=== PATIENT | female | born 1990 | race Caucasian/White ===

== ENCOUNTER → 2019-03-04 | Outpatient (CLI) | payer MEDICAID ==
--- NOTE | 2019-03-04 13:43 | MY ---
Diagnostic Tomosynthesis Bi CLINICAL HISTORY: Left breast lump COMPARISON: None, baseline TECHNIQUE: Craniocaudal and mediolateral oblique views of both breasts were obtained using low dose, digital soft tissue technique.Images were reviewed with a radiologist prior to completion. Computer-Aided Detection System was utilized . BREAST DENSITY: There are scattered areas of fibroglandular density. FINDINGS: There are there are 4 contiguous small well demarcated nodular densities in the right outer breast. There is a marker in the upper outer left breast. The this is were patient palpates a lump. There is no underlying mass or architectural distortion. No suspicious calcifications are seen. Impression: Small nodular densities in the lateral aspect of the posterior right breast the No mammographic abnormality in the region of patient's palpable lump Recommendation: Bilateral Limited breast ultrasound BI-RADS 0: Incomplete. Needs additional imaging evaluation needed. .
--- NOTE | 2019-03-04 13:45 | US ---
Breast Limited Lt CLINICAL HISTORY: Left upper outer breast lump FINDINGS: Right breast: At 9:30 there is a cluster of small cysts. There is also 1 small mildly prominent duct. No solid lesion seen Left breast: No mass or architectural distortion IMPRESSION: Small nodular density seen in the lateral right breast correlate to cysts No abnormality seen in the left breast Recommendation: Routine mammographic follow-up as per ACR guidelines BI-RADS 2: Benign finding.
== END ==
LOC: JP.MAM 08:30
PROVIDERS: ATTEND Family Medicine
DX: N64.4 Mastodynia (principal); N63.20 Unspecified lump in the left breast, unspecified quadrant; N63.10 Unspecified lump in the right breast, unspecified quadrant
CPT/HCPCS: 76642; 77066; G0279

== ENCOUNTER 2020-01-26 12:31 | Day surgery (SDC) | payer MEDICAID ==
--- NOTE | 2020-01-26 13:12 | EDM.PDOC ---
ED HPI GENERAL MEDICAL PROBLEM - General Chief Complaint: Abdominal Pain Stated Complaint: PAIN SIDE AND IN BACK FROM [facility] Time Seen by Provider: 01/26/20 13:10 Source of Information: Reports: Patient, Other (Dr. Hendricks called ahead from [facility] to discuss pt. with me) History Limitations: Reports: No Limitations - History of Present Illness INITIAL COMMENTS - FREE TEXT/NARRATIVE: Abrupt onset RLQ pain as of yesterday PM.Able to drink water. Constant cramping w/flares of pain to 07/04. partial reief of pain w/leaning to L. Lab studies done in [place]: WBC12,700. Hgb 14.3.. U/A unremarkable. Onset: Today, Sudden Location: Reports: Abdomen (RLQ), Radiates to (back) Quality: Reports: Stabbing Severity: Severe Improves with: Reports: Other (leaning to left) Right Lower Abdomen Pain Score (Numeric/FACES): 7 - Related Data Allergies Allergy/AdvReac Type Severity Reaction Status Date / Time Penicillins Allergy Hives Verified 01/26/20 13:03 Home Meds: Home Meds Gabapentin [Neurontin] 900 mg PO ASDIRECTED 11/06/14 [History] Phentermine HCl 37.5 mg PO DAILY 10/19/19 [History] Social & Family History - Tobacco Use Smoking Status *Q: Light Tobacco Smoker Years of Tobacco use: 11 Packs/Tins Daily: 0.3 - Caffeine Use Caffeine Use: Reports: Energy Drinks Other Caffeine Use: 2-3 per week - Recreational Drug Use Recreational Drug Use: No ED ROS GENERAL - Review of Systems Review Of Systems: See Below Constitutional: Reports: Fever, Chills, Malaise HEENT: Reports: No Symptoms Respiratory: Reports: No Symptoms Cardiovascular: Denies: Chest Pain Endocrine: Reports: Fatigue GI/Abdominal: Reports: Abdominal Pain, Anorexia, Nausea, Vomiting : Reports: No Symptoms Skin: Denies: Pallor, Rash Neurological: Reports: No Symptoms Psychiatric: Reports: Depression ED EXAM, GI/ABD - Physical Exam Exam: See Below Exam Limited By: No Limitations General Appearance: Alert, Moderate Distress, Obese, Other (Leans constantly to L) Eyes: Bilateral: Normal Appearance Ears: Normal External Exam Nose: Normal Inspection Throat/Mouth: Normal Inspection Head: Normocephalic Neck: Supple, Non-Tender, Full Range of Motion Respiratory/Chest: Lungs Clear, Normal Breath Sounds Cardiovascular: Regular Rate, Rhythm, No Murmur GI/Abdominal Exam: Guarding (RLQ), Tender, Abnormal Bowel Sounds (infrequent) Back Exam: Full Range of Motion Extremities: Normal Range of Motion Neurological: Alert, Oriented Psychiatric: Depressed Mood Skin Exam: Warm, Dry, No Rash. No: Jaundice, Pallor Course - Vital Signs Last Recorded V/S: Last Vital Signs Temp 36.5 C 01/26/20 13:03 Pulse 92 01/26/20 14:35 Resp 18 01/26/20 13:53 BP 123/72 01/26/20 14:35 Pulse Ox 92 L 01/26/20 14:35 - Orders/Labs/Meds Orders: Active Orders 24 hr Category Date Time Status Iopamidol [Isovue-300 (61%)] Med 01/26/20 14:00 Active 141 ml IV . DIRECTED Meropenem [Merrem] 500 mg Med 01/26/20 15:10 Active Sodium Chloride 0.9% [Normal Saline] 50 ml IV ONETIME Sodium Chloride 0.9% [Normal Saline] 1,000 ml Med 01/26/20 15:00 Active IV ASDIRECTED Sodium Chloride 0.9% [Saline Flush] Med 01/26/20 13:49 Active 10 ml FLUSH ONETIME PRN Medication Orders Sodium Chloride (Normal Saline) 1,000 mls @ 125 mls/hr IV ASDIRECTED [facility] Last Admin: 01/26/20 14:52 Dose: 125 mls/hr Meropenem 500 mg/ Sodium (Chloride) 50 mls @ 100 mls/hr IV ONETIME ONE Stop: 01/26/20 15:39 Iopamidol (Isovue-300 (61%)) 141 ml IV . DIRECTED [facility] Last Admin: 01/26/20 14:03 Dose: 141 ml Sodium Chloride (Saline Flush) 10 ml FLUSH ONETIME PRN PRN Reason: PER RADIOLOGY PROTOCOL Last Admin: 01/26/20 14:06 Dose: 10 ml Labs: Laboratory Tests 01/26/20 01/26/20 01/26/20 Range/Units 13:30 13:30 13:44 Sodium 139 L (140-148) mmol/L Potassium 3.9 (3.6-5.2) mmol/L Chloride 104 (100-108) mmol/L Carbon Dioxide 22 (21-32) mmol/L Anion Gap 16.9 H (5.0-14.0) mmol/L BUN 15 (7-18) mg/dL Creatinine 0.9 (0.6-1.0) mg/dL Est Cr Clr Drug Dosing 72.95 mL/min Estimated GFR (MDRD) > 60 (>60) Glucose 84 (74-106) mg/dL Lactic Acid 1.2 (0.4-2.0) mmol/L Calcium 8.6 (8.5-10.1) mg/dL Total Bilirubin 0.5 (0.2-1.0) mg/dL AST 12 L (15-37) U/L ALT 28 (12-78) U/L Alkaline Phosphatase 136 H (46-116) U/L Total Protein 7.9 (6.4-8.2) g/dL Albumin 3.9 (3.4-5.0) g/dL Globulin 4.0 H (2.3-3.5) g/dL Albumin/Globulin Ratio 1.0 L (1.2-2.2) HCG, Quant 2 (0-6) mIU/mL Meds: Medications Generic Name Dose Route Start Last Admin Trade Name Freq PRN Reason Stop Dose Admin Sodium Chloride 1,000 mls @ 125 mls/hr 01/26/20 15:00 01/26/20 14:52 Normal Saline IV 125 mls/hr ASDIRECTED RICHARD Administration Meropenem 500 mg/ Sodium 50 mls @ 100 mls/hr 01/26/20 15:10 Chloride IV 01/26/20 15:39 ONETIME ONE Iopamidol 141 ml 01/26/20 14:00 01/26/20 14:03 Isovue-300 (61%) IV 141 ml . DIRECTED RICHARD Administration Sodium Chloride 10 ml 01/26/20 13:49 01/26/20 14:06 Saline Flush FLUSH 10 ml ONETIME PRN Administration PER RADIOLOGY PROTOCOL Discontinued Medications Generic Name Dose Route Start Last Admin Trade Name Freq PRN Reason Stop Dose Admin Hydromorphone HCl 1 mg 01/26/20 13:35 01/26/20 13:48 Dilaudid IVPUSH 01/26/20 13:36 1 mg ONETIME ONE Administration Hydromorphone HCl 1 mg 01/26/20 14:14 01/26/20 14:25 Dilaudid IVPUSH 01/26/20 14:15 1 mg ONETIME ONE Administration Sodium Chloride 1,000 mls @ 999 mls/hr 01/26/20 13:34 01/26/20 13:30 Normal Saline IV 01/26/20 14:34 999 mls/hr .BOLUS ONE Administration Sodium Chloride 83 mls @ 3 mls/sec 01/26/20 13:49 01/26/20 14:04 Normal Saline IV 01/26/20 13:50 Not Given ONETIME ONE Ondansetron HCl 4 mg 01/26/20 13:35 01/26/20 13:47 Zofran IVPUSH 01/26/20 13:36 4 mg ONETIME ONE Administration - Radiology Interpretation Free Text/Narrative:: Called by [facility] at 1438 w/ Dx Appendicitis. Departure - Departure Time of Disposition: 15:00 Disposition: Admitted As Inpatient 66 Condition: Good Clinical Impression: Appendicitis - Discharge Information Referrals: Senait Hendricks MD [Primary Care Provider] - Forms: ED Department Discharge Sepsis Event Note - Evaluation Sepsis Screening Result: No Definite Risk - Focused Exam Vital Signs: Vital Signs Temp Pulse Resp BP Pulse Ox 01/26/20 14:35 92 123/72 92 L 01/26/20 13:53 95 18 132/74 99 01/26/20 13:05 118 H 16 131/91 H 98 01/26/20 13:03 36.5 C 118 H 16 131/91 H 98 Date Exam was Performed: 01/26/20 Time Exam was Performed: 15:01 - My Orders Last 24 Hours: My Active Orders 01/26/20 13:49 Sodium Chloride 0.9% [Saline Flush] 10 ml FLUSH ONETIME PRN 01/26/20 14:00 Iopamidol [Isovue-300 (61%)] 141 ml IV . DIRECTED 01/26/20 15:00 Sodium Chloride 0.9% [Normal Saline] 1,000 ml IV ASDIRECTED 01/26/20 15:10 Meropenem [Merrem] 500 mg Sodium Chloride 0.9% [Normal Saline] 50 ml IV ONETIME - Assessment/Plan Last 24 Hours: My Active Orders 01/26/20 13:49 Sodium Chloride 0.9% [Saline Flush] 10 ml FLUSH ONETIME PRN 01/26/20 14:00 Iopamidol [Isovue-300 (61%)] 141 ml IV . DIRECTED 01/26/20 15:00 Sodium Chloride 0.9% [Normal Saline] 1,000 ml IV ASDIRECTED 01/26/20 15:10 Meropenem [Merrem] 500 mg Sodium Chloride 0.9% [Normal Saline] 50 ml IV ONETIME Assessment:: Acute Appendicitis
[2020-01-26] MEDS ORDERED: Sodium Chloride 0.9% 1,000 ML IV ONE (13:34)
[2020-01-26] MEDS ORDERED: HYDROmorphone 1 MG/ML Syringe IVPUSH ONE ×2 (13:35→14:14)
[2020-01-26] MEDS ORDERED: Ondansetron 4 MG/2 ML SDV IVPUSH ONE (13:35)
[2020-01-26] MEDS ORDERED: Sodium Chloride 0.9% 10 ML Syringe FLUSH PRN (13:49)
[2020-01-26] MEDS ORDERED: Iopamidol 612 MG/ML 150 ML Bottle IV SCH (14:00)
--- NOTE | 2020-01-26 14:43 | CRLCT ---
INDICATION: Right lower quadrant pain. History of hysterectomy and bilateral oophorectomy. COMPARISON: None TECHNIQUE: CT examination of the abdomen and pelvis was performed following the uneventful intravenous administration of 141 cc of Isovue-300. Thin section axial images were obtained from the lung bases through the pubic symphysis. Oral contrast was not administered. Please note that all CT scans at this facility use dose modulation, iterative reconstruction, and/or weight-based dosing when appropriate to reduce radiation dose to as low as reasonably achievable. FINDINGS: LUNG BASES: The lung bases as visualized appear normal.The heart size is normal at the lung bases. LIVER/BILIARY SYSTEM:The liver is normal in size and configuration. There is no focal mass and there is no intra- or extra hepatic biliary ductal dilatation.The gall bladder appears normal. ADRENALS: Normal KIDNEYS, URETERS and BLADDER:The kidneys appear normal. No visible mass, calculus or hydronephrosis. The ureters and bladder as visualized appear normal. SPLEEN:Normal appearance. PANCREAS: Appears normal. RETROPERITONEUM and MESENTERY: There are enlarged inflamed lymph nodes in the right lower quadrant. This pattern is very suggestive of mesenteric lymphadenitis. However, separately, the appendix is well-visualized and is abnormal. It measures up to 9.7 millimeters on axial imaging and greater than 6 millimeters is considered abnormal. This also periappendiceal inflammatory change. There is no collection. No free air or significant free fluid above and beyond inflammatory change. The diagnosis of simple mesenteric lymphadenitis cannot be made by imaging if the appendix is abnormal. However, it is extremely unusual to have lymphadenopathy associated with an uncomplicated appendix. Surgical consultation is advised . GASTROINTESTINAL SYSTEM: There is no evidence of diverticulitis, colitis, mechanical obstruction, or appendicitis. The small bowel as visualized appears normal. PELVIS: No mass, adenopathy or free fluid. OSSEOUS STRUCTURES and ABDOMINAL WALL: There is an age-appropriate appearance of the osseous structures.No significant abdominal wall defect. OTHER: No free fluid or free air. IMPRESSION: Imaging features overlap between mesenteric lymphadenitis and acute uncomplicated appendicitis. It is probably safest to assume that this is acute uncomplicated appendicitis with regional lymphadenopathy. Further clinical correlation and surgical consultation is advised. I discussed the above findings at 2:35 p.m. on January 26, [address] Rivas Pastor Please note that all CT scans at this facility use dose modulation, iterative reconstruction, and/or weight-based dosing when appropriate to reduce radiation dose to as low as reasonably achievable. Dictated by Albino Beltrán MD @ Jan 26 2020 2:29PM Signed by Dr. Albino Beltrán @ Jan 26 2020 2:41PM
[2020-01-26] MEDS ORDERED: Meropenem 500 MG in Sodium Chloride 0.9% 50 ML IV ONE ×2 (14:57→15:10)
[2020-01-26] MEDS ORDERED: Sodium Chloride 0.9% 1,000 ML IV SCH (15:00)
[2020-01-26] MEDS ORDERED: Ondansetron 4 MG/2 ML SDV ONE (15:14)
[2020-01-26] MEDS ORDERED: fentaNYL 250 MCG/5 ML SDV ONE (15:14)
[2020-01-26] MEDS ORDERED: Dexamethasone 4 MG/ML SDV ONE (15:14)
[2020-01-26] MEDS ORDERED: Rocuronium 50 MG/5 ML Vial ONE (15:14)
[2020-01-26] MEDS ORDERED: Neostigmine Methylsulfate 1 MG/ML 5 ML Syringe ONE (15:14)
[2020-01-26] MEDS ORDERED: Glycopyrrolate 0.2 MG/ML 5 ML MDV ONE (15:14)
[2020-01-26] MEDS ORDERED: Propofol 200 MG/20 ML SDV ONE (15:14)
[2020-01-26] MEDS ORDERED: Succinylcholine 200 MG/10 ML MDV ONE (15:14)
[2020-01-26] MEDS ORDERED: Bupivacaine 0.5%/EPINEPHrine 1:200,000 50 ML MDV ONE (15:25)
[2020-01-26] MEDS ORDERED: fentaNYL 100 MCG/2 ML SDV ONE (16:29)
[2020-01-26] MEDS ORDERED: Lactated Ringers 1,000 ML ONE (16:29)
[2020-01-26] MEDS ORDERED: HYDROmorphone 0.5 MG/0.5 ML Syringe IVPUSH PRN (17:52)
[2020-01-26] MEDS ORDERED: hydrOXYzine HCL 100 MG/2 ML SDV IM PRN (17:55)
[2020-01-26] MEDS: Dextrose 5%-Lactated Ringers 1,000 ML IV SCH (18:48)
[2020-01-26] MEDS: HYDROmorphone 1 MG/ML Syringe IVPUSH PRN ×2 (19:56→22:16)
[2020-01-26] MEDS: Acetaminophen 500 MG Tab PO SCH (19:57)
[2020-01-26] MEDS: Gabapentin 300 MG Cap PO SCH (19:59)
[2020-01-26] MEDS: Meropenem 500 MG in Sodium Chloride 0.9% 50 ML IV SCH (22:12)
[2020-01-26] MEDS ORDERED: Ibuprofen 600 MG Tab PO ONE (22:30)
[2020-01-27] MEDS: Dextrose 5%-Lactated Ringers 1,000 ML IV SCH ×2 (00:46→07:01)
[2020-01-27] MEDS: Acetaminophen 500 MG Tab PO SCH ×2 (02:06→10:01)
[2020-01-27] MEDS: Meropenem 500 MG in Sodium Chloride 0.9% 50 ML IV SCH ×2 (03:04→09:57)
[2020-01-27] MEDS: Ibuprofen 600 MG Tab PO SCH ×2 (05:18→11:29)
[2020-01-27] MEDS ORDERED: Dextrose 5%-Lactated Ringers 1,000 ML IV SCH ×2 (07:56→08:00)
[2020-01-27] MEDS ORDERED: Ondansetron 4 MG Tab.DIS PO PRN (07:57)
[2020-01-27] MEDS ORDERED: HYDROmorphone 2 MG Tab PO PRN (07:57)
[2020-01-27] MEDS ORDERED: Non-Formulary Medication 1 Each PO SCH (09:00)
[2020-01-27] MEDS ORDERED: PHENTERMINE HCL 37.5 MG PO SCH (09:00)
[2020-01-27] MEDS: Gabapentin 300 MG Cap PO SCH (10:01)
--- NOTE | 2020-01-28 03:17 | DISCH ---
ADMISSION DIAGNOSIS: Abdominal pain. DISCHARGE DIAGNOSES: Diagnostic laparoscopy with; 1. Appendectomy with drainage of periappendiceal abscess. 2. Excision of mass, right pelvic sidewall for perforated appendectomy with periappendiceal abscess and nodule, hemorrhagic lesion at the pelvic sidewall, 5.8 cm. Date of surgery: 01/26/2020. Surgeon: Albino Fu MD. HISTORY OF PRESENT ILLNESS: Isabella Chavez presented to the emergency room after being in the clinic for right lower quadrant abdominal pain. After preoperative evaluation and discussion of possible risks and possible complications, she wished to proceed with surgical procedure. HOSPITAL COURSE: Isabella had her surgery on 01/26/2020. She had no operative complications. On postoperative day #1, she wished to be discharged to home and left before discharge papers were explained to the patient. PHYSICAL EXAMINATION: GENERAL: Isabella is a 29-year-old female. VITAL SIGNS: Height is 5 feet 2 inches, weight is 208 pounds. TPR at 0700; 96.7, 80, and19; blood pressure 113/65. HEENT: Negative. NECK: Supple. HEART: Regular rate and rhythm. LUNGS: Clear. ABDOMEN: Dressings is dry and intact. Abdominal binder is on. EXTREMITIES: Without peripheral edema. DISPOSITION: Discharged to home. The patient left before instructions were given. DISCHARGE MEDICATIONS: She was supposed to go home with doxycycline 100 mg b.i.d. for 10 days; Dilaudid 2 mg p.o. q.6 hours p.r.n. pain, #28; and Motrin 600 mg p.o. q.6 hours, #40. FOLLOWUP: She is to have a followup appointment on 02/08/2020 at 10 a.m. DIET: Usual diet as tolerated. Drink 8 to 10 glasses of water a day. ACTIVITY: No lifting greater than 10 pounds for 2 weeks. Driving: Do not drive for 1 week and while on pain medication. May shower. Keep operative site clean and dry. Wear abdominal binder for 2 weeks and then as tolerated. Notify provider if any fever, increased pain, nausea, or vomiting. Use incentive spirometer 10 times every hour while awake for 1 week.
--- NOTE | 2020-02-03 16:30 | OR ---
DATE OF PROCEDURE: 01/26/2020 SURGEON: Albino Fu MD PREOPERATIVE DIAGNOSIS: Acute appendicitis. POSTOPERATIVE DIAGNOSES: 1. Perforated appendicitis with periappendiceal abscess. 2. Nodular hemorrhagic lesion, right pelvic sidewall. OPERATIVE PROCEDURE: Diagnostic laparoscopy with: 1. Appendectomy with drainage of periappendiceal abscess (86320). 2. Excision of mass, right pelvic sidewall (35610). ANESTHESIA: General. INDICATIONS FOR PROCEDURE: A 29-year-old presenting with acute appendicitis clinically and radiologically. Plan is to proceed with a laparoscopic and if necessary open approach. She has had a previous JESSICA/BSO for endometriosis. Potential risks of the procedure including bleeding, infection, injury to underlying viscera, leaks from any GI tract closures such as the appendiceal stump, as well as remote possibility of cardiopulmonary or septic complications leading to were all gone over, and the patient wishes to proceed. DETAILS OF PROCEDURE: The patient was taken to the operating room, and after general endotracheal anesthesia was induced, a Dill catheter was inserted, and the abdomen prepped and draped. Three fingerbreadths superior and 3 fingerbreadths left of the umbilicus, a transverse incision was made and peritoneal cavity entered under direct vision with an Optiview trocar. Upon entering the peritoneal cavity, no significant adhesions were noted in the anterior abdominal wall area. 12 mm trocars were then placed in the left lower quadrant and right upper quadrant. The area of the appendix was then identified by tracing down the cecum. This was pulled up and noted to have a perforation in the junction of the proximal and middle third of the appendix. There was roughly a tablespoon size periappendiceal abscess. Cultures of this were obtained as it was evacuated. The mesoappendix was then divided with Harmonic scalpel and appendix was then divided flush with the cecum with a MOHAN purple load. At this point, the patient was noted to have a nodular hemorrhagic lesion in the right pelvic sidewall. This did appear to have a very tiny remnant of persistent ovarian tissue, although pathologist will be clarifying that. This was pulled up against the abdominal wall and then excised by means of wagner and the lesion removed in a separate specimen bag. This measured 5.8 cm in maximal dimension. At that point, no further problems were noted. Markos-Gómez drain was taken out through the 5 mm trocar placed in the right flank and positioned across the appendectomy stump, and from there into the pelvis, including the area of the abscess. The trocars were then sequentially removed and the fascia was closed with 0 Vicryl stitch. The specimen had been able to be removed through a specimen bag, so there was minimal contamination of the abdominal wall, and so the skin was closed with a 4-0 Vicryl skin stitch. The patient had received bilateral transversus abdominis plane blocks, and the incisions were anesthetized with 0.5% Marcaine as well. The patient was taken to the recovery room in satisfactory condition. There were no evident complications. Albino Fu MD /[id number]
== END 2020-01-27 12:50 | disposition home or self-care (01) ==
LOC: JP.ED 12:31 → JP.SDS 15:07 → JP.SDSSCHI 15:07 → JP.MS 17:25 → UNDOADMIN 17:25 → UNDODISIN 01-27 12:50 → JP.SDS 01-27 12:50
PROVIDERS: ATTEND Surgery
DX: K35.33 Acute appendicitis with perforation, localized peritonitis, and gangrene, with abscess (principal); N94.89 Other specified conditions associated with female genital organs and menstrual cycle; Z88.0 Allergy status to penicillin; Z79.899 Other long term (current) drug therapy
CPT/HCPCS: 36415; 44970; 51702; 74177; 80053; 83605; 84702; 87070; 87075; 87077; 87186; 87205; 94762; 96361; 96365; 96375; 96376; 99285; A9270; J0171; J0330; J1100; J1170; J2185; J2405; J2704; J2710; J2795; J3010; J3410; J3490; J7030; J7050; J7120; J7121; Q9967